=== PATIENT | female | born 1995 | race Caucasian/White ===

== ENCOUNTER 2017-12-13 18:40 | Emergency (ER) | payer MEDICAID ==
[2016-07-04 07:29] VITALS: BMI 32.9
[~2017-12-13 18:40] MED LIST: FERROUS SULFAT325 MG PO; IBUPROFEN600 MG PO; PERCOCET 5-3251 TAB; PERCOCET 5-3251 TAB PO; PRENATAL COMPLE1 TAB PO
== END 2017-12-13 19:50 | disposition home or self-care (01) ==
LOC: D.ER 18:40
DX: R20.2 Paresthesia of skin (principal)